=== PATIENT | male | born 1980 | race Hispanic/Latino ===

== ENCOUNTER 2024-03-21 16:35 | Emergency (ER) | payer OTHER, SELFPAY ==
--- NOTE | ~2024-03-21 | XR_ITS ---
EXAMINATION: XR knee LT min 4V DATE: 03/21/2024 18:58 INDICATION: Left knee pain TECHNIQUE: Anteroposterior, 2 oblique and crosstable lateral views of the left knee were obtained COMPARISON: None. FINDINGS: Alignment is normal. No fracture. Joint spaces appear normal on nonweightbearing imaging. There are tiny marginal osteophytes at the medial and patellofemoral compartments consistent with at least mini mal osteoarthritis. No joint effusion/layering lipohemarthrosis. There is suggestion of a small loose osteochondral body at the popliteal recess. Soft tissues are unremarkable. IMPRESSION: 1. 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 No left knee joint effusion or acute osseous abnormality. Reviewed, dictated and finalized at location A. IMPRESSION: 1. At least minimal osteoarthritis in the medial and patellofemoral compartment s. No left knee joint effusion or acute osseous abnormality.
--- NOTE | ~2024-03-21 | XR_ITS ---
EXAMINATION: XR finger 1st LT min 2V DATE: 03/21/2024 17:34 INDICATION: Left thumb laceration TECHNIQUE: Dorsal palmar, lateral and 2 oblique views of the left digit were obtained COMPARISON: None FINDINGS: Bone alignment is normal. No fracture. Joint spaces are normal. There is suggestion of a laceration a t the dorsal base of the distal phalanx. No radiopaque foreign bodies. IMPRESSION: 1. No osseous abnormality or radiopaque foreign bodies. Reviewed, dictated and finalized at location A.
[2024-03-21 16:39] VITALS: BP 150/75; PULSE 96; RESP 16; TEMP 36.6; O2SAT 98
--- NOTE | 2024-03-21 17:17 | ED.WOUNDLAC ---
HPI - Wound/Laceration General Chief Complaint: Wound/Laceration Stated Complaint: saw vs finger Time Seen by Provider: 03/21/24 17:09 Source: patient and family Mode of arrival: ambulatory Limitations: language barrier (ESL however very good comprehension and verbal abilities; daughter helps occasionally as needed though only for clarification of more nuanced questions) History of Present Illness HPI narrative: Patient is right-hand dominant. Prior to arrival he had an injury with a miter saw to his left thumb. His tetanus is reportedly up-to-date as he states it was last year. Bleeding controlled. He has not yet taken anything for pain. Also asks about left knee pain. 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 He will note that he experiences pain is resolving and sometimes feels like his knee will give out or is otherwise stable and might give out. No popping. No paresthesias. Related Data Allergies Allergy/AdvReac Type Severity Reaction Status Date / Time No Known Allergies Allergy Verified 03/21/24 16:38 [facility] Past Medical History Medical History (Updated 03/24/24 @ 06:42 by Nan Weldon MD) Right hand dominant Social History Social History (Updated 03/24/24 @ 06:49 by Nan Weldon MD) Social History: [place] as Second Language; Italian speaking Living arrangements: with family Occupation/Education: occupation Additional occupation/education comments: construction Exam Narrative: GENERAL: Well-appearing, well-nourished, and in no acute distress. HEAD: Normocephalic, atraumatic. EYES: Non injected, non icteric ENT: Nares clear, no rhinorrhea or epistaxis. NECK: Supple. CHEST: Speaking in full sentences. No respiratory distress. HEART: Regular rate and rhythm. Strong radial pusle and brisk cap refill in thumb. ABDOMEN: Soft, nondistended. EXTREMITIES: Normal range of motion. No edema. 5/5 strength with left knee flexion/extension. No significant effusion. No tenderness along lateral or medial joint line. No overlying edema/erythema. No crepitus with active or passive range of motion. Thumb not held in fixed position. Able to bend thumb at individual joints. SKIN: Warm, dry. In total 3cm laceration to left thumb though approximately 1cm is superficial. NEURO: No focal deficits. Alert and oriented. Sensation intact and symmetric in lower extremities. PSYCH: Normal mood and affect. Course Vital Signs Vital signs: Vital Signs Temperature 97.8 F 03/21/24 16:39 Pulse Rate 96 03/21/24 16:39 Respiratory Rate 16 03/21/24 16:39 Blood Pressure 150/75 H 03/21/24 16:39 Pulse Oximetry 98 03/21/24 16:39 Temperature 97.8 F 03/21/24 16:39 Pulse Rate 75 03/21/24 19:24 Respiratory Rate 14 03/21/24 19:24 Blood Pressure 138/74 03/21/24 19:24 Pulse Oximetry 99 03/21/24 19:24 Procedures Laceration Laceration 1: Date: 03/21/24 Site: hand (thumb) Side (If applicable): left Size (cm): 2 Description: linear Depth: simple, single layer Local Anesthetic: lidocaine 1% Amount of anesthesia used (mL): 2 Pre-repair: wound explored, irrigated and deep structures intact ====== Skin Level ====== Skin layer closed with: nylon Number of sutures: 4 Technique: simple, interrupted ====== Subcutaneous Layer ====== ====== Muscle Layer ====== ====== Tendon Layer ====== Dressing: applied by RN, non adhesive with topical cream applied first Nerve Block Nerve Block 1: Nerve block date: 03/21/24 Local Anesthetic: lidocaine 2% Amount of anesthesia used (mL): 6 Side: left Nerve Blocks: digital (thumb) Complications: pain with procedure MDM - Wound/Laceration MDM Narrative Medical decision making narrative: Patient presents with left thumb laceration after injury with a saw. He reports that his tetanus
[2024-03-21] MEDS: HYDROcodone/acetaminophen (*CRX) 5-325 MG TABLET 1 TAB PO (17:51)
--- NOTE | 2024-03-21 19:13 | PC.NURSE ---
Report from RALEIGH Donato.
[2024-03-21 19:24] VITALS: BP 138/74; PULSE 75; RESP 14; O2SAT 99
== END 2024-03-21 19:26 | disposition home or self-care (01) ==
PROVIDERS: Emergency Provider Student in an Organized Health Care Education/Training Program; PCP Emergency Medicine
DX: S61.012A Laceration without foreign body of left thumb without damage to nail, initial encounter (principal); M17.12 Unilateral primary osteoarthritis, left knee; W31.2XXA Contact with powered woodworking and forming machines, initial encounter
CPT/HCPCS: 12001; 73140; 73564; 99284; A9270